=== PATIENT | female | born 2000 | race Caucasian/White ===

== ENCOUNTER → 2022-09-15 08:08 | Outpatient (CLI) | payer OTHER, SELFPAY ==
--- NOTE | 2022-09-15 08:11 | DI.MRI.S_ITS ---
PROCEDURE: MR KNEE RT WO CON INDICATIONS: Pain in right knee TECHNIQUE: Noncontrast sagittal PD fast spin echo and T2 fast spin echo with fat saturation, sagittal 3-D FLASH with fat saturation; coronal T1 spin echo and PD fast spin echo with fat saturation, and axial PD fast spin echo with fat saturation through the knee. COMPARISON: None. FINDINGS: Image quality: Excellent. Anterior Cruciate Ligament: Intact. Posterior Cruciate Ligament: Intact. Medial Collateral Ligament: Intact. Lateral Collateral Ligament: Intact. Medial Meniscus: Intact. Lateral Meniscus: Intact. Medial and Lateral Tendons: The semimembranosus tendon insertions and meniscocapsular junction appear intact. Visualized portions of the pes anserinus tendons appear normal. No abnormal bursal fluid. The long and short heads of the biceps femoris tendon appear intact. The popliteus tendon appears intact. No signs of posterolateral corner injury. Iliotibial band appears normal. Anterior Structures: The quadriceps and patellar tendons appear intact. No patellar subluxation. A congenitally shallow trochlear groove is seen with lateral patellar tilting but no patellar subluxation. The tibial tubercle-trochlear groove distance is within normal limits. No edema in the infrapatellar fat pad. Bones: No acute trabecular bone injury or fracture. Medial Femorotibial Cartilage: Intact. Lateral Femorotibial Cartilage: Intact. Patellofemoral Cartilage: Intact. Soft Tissues: Small joint effusion is present. No medial popliteal cyst. The musculature surrounding the knee is normal in bulk. IMPRESSION: 1. No acute trabecular bone injury. The cruciate and collateral ligaments are intact. No meniscal tear or cartilage defect is seen. 2. Small joint effusion. Approved by: Jony Orta M.D. on 09/15/2022 at 10:22
== END ==
DX: M25.561 Pain in right knee (principal); M25.461 Effusion, right knee
CPT/HCPCS: 73721